=== PATIENT | female | born 1975 | race Caucasian/White ===

== ENCOUNTER 2016-03-28 10:10 | Emergency (ER) | payer BC, OTHER ==
[2016-03-28 10:30] VITALS: BP 120/62
--- NOTE | 2016-03-28 10:43 | UC ---
Shoulder Pain HPI - HPI Summary HPI Summary: RIGHT SHOULDER PAIN X 1 DAY INJURY AT WORK , A STUDENT PULLED HER RIGHT ARM - History of Current Complaint Chief Complaint: UCUpperExtremity Stated Complaint: RIGHT SHOULDER INJURY Time Seen by Provider: 03/28/16 10:32 Hx Obtained From: Patient Hx Last Menstrual Period: 02/29/16 Onset/Duration: Sudden Onset, Lasting Days - 1, Still Present Timing: Constant Severity Initially: Moderate Severity Currently: Moderate Location Of Pain: Is Discrete @ - RIGHT SHOULDER Character: Aching Aggravating Factor(s): Movement, Lifting, Flexion, Extension, Internal Rotation , External Rotation, Abduction Alleviating Factor(s): Rest Associated Signs And Symptoms: Positive: Weakness - RIGHT ARM / SHOULDER. Negative: Swelling, Redness, Bruising, Fever, Numbness/Tingling - Allergies/Home Medications Allergies/Adverse Reactions: Allergies Allergy/AdvReac Type Severity Reaction Status Date / Time Penicillins Allergy Unknown Unknown Verified 03/28/16 10:24 Reaction Details Home Medications: Home Medications Ibuprofen TAB* [Advil TAB*] 800 mg PO Q6H PRN 03/28/16 [History Confirmed ] Norethin Acet & Estrad-Fe [Microgestin 24 Fe 1-20 mg-Mcg] 1 tab PO DAILY [History Confirmed 03/28/16] PMH/Surg Hx/FS Hx/Imm Hx Previously Healthy: Yes - Surgical History Surgical History: None - Family History Known Family History: Negative: Diabetes - Social History Alcohol Use: None Substance Use Type: None Smoking Status (MU): Never Smoked Tobacco Review of Systems Constitutional: Negative Skin: Negative Eyes: Negative ENT: Negative Respiratory: Negative Cardiovascular: Negative Musculoskeletal: Other: - RIGHT SHOULDER PAIN All Other Systems Reviewed And Are Negative: Yes Physical Exam Triage Information Reviewed: Yes Appearance: Well-Appearing, No Pain Distress, Well-Nourished Vital Signs: Initial Vital Signs Temp 98.1 F 03/28/16 10:25 Pulse 71 03/28/16 10:25 Resp 16 03/28/16 10:25 BP 120/62 03/28/16 10:25 Pulse Ox 100 03/28/16 10:25 Vital Signs Reviewed: Yes Eyes: Positive: Conjunctiva Clear ENT: Positive: Normal ENT inspection, Hearing grossly normal, Pharynx normal Neck: Positive: Supple, Nontender, No Lymphadenopathy Respiratory: Positive: Chest non-tender, Lungs clear, Normal breath sounds Cardiovascular: Positive: RRR, No Murmur, Pulses Normal Musculoskeletal: Positive: Other: - RIGHT SHOULDER: NO SWELLING, NO TENDERNESS, GOOD ROM ON FLEXION, EXTENSION, ABDUCTION WITH MODERATED DISCOMFORT Neurological Exam: Normal Shoulder Course/Dx - Differential Dx/Diagnosis Provider Diagnoses: SPRAIN RIGHT SHOULDER Discharge - Discharge Plan Condition: Stable Disposition: HOME Patient Education Materials: Shoulder Sprain (ED) Referrals: Josie Herrera CNM [Primary Care Provider] - 7 Days
== END 2016-03-28 10:52 | disposition home or self-care (01) ==
LOC: UCCORT 10:10
DX: S43.401A Unspecified sprain of right shoulder joint, initial encounter (principal); X50.0XXA Overexertion from strenuous movement or load, initial encounter; Y92.9 Unspecified place or not applicable; Z88.0 Allergy status to penicillin
CPT/HCPCS: 99201; G0463